=== PATIENT | female | born 1970 | race Caucasian/White ===

== ENCOUNTER 2021-02-03 11:17 | Emergency (ER) | payer OTHER ==
[2021-02-03 13:28] LABS: BASOPHIL 0.7 % (0-2); EOSINOPHIL 0.6 % (0-5); HCT 43.7 % (37.0-47.0); HGB 14.6 g/dl (12.5-16.0); LYMPHOCYTE 7.3 % (15-48); MCH 29.7 pg (25.0-31.0); MCHC 33.4 g/dL (32.0-36.0); MONOCYTE 7.7 % (0-12); MPV 9.8 fL (6.0-9.5); NEUTROPHIL 83.4 % (41-80); NRBC 0; PLT 221 K/uL (150-400); RBC 4.91 M/uL (4.20-5.40); RDW 13.5 % (11.5-14.0); WBC 9.4 K/uL (4.0-10.5)
[2021-02-03 13:39] LABS: BUN/CREAT RATIO (CALC) 14.8 RATIO; CREATININE 0.61 mg/dL (0.51-0.95); POTASSIUM 4.3 mmol/L (3.5-5.1)
[2021-02-03] MEDS ORDERED: AMOXICILLIN500 MG PO (15:50)
[2021-02-03] MEDS ORDERED: FLONASE ALLER15.8 ML (15:50)
== END 2021-02-03 16:00 | disposition home or self-care (01) ==
LOC: FER 11:17
PROVIDERS: Nurse Practitioner Family
DX: G43.909 Migraine, unspecified, not intractable, without status migrainosus (principal); J01.90 Acute sinusitis, unspecified; Z98.890 Other specified postprocedural states
CPT/HCPCS: 36415; 80048; 85025; J1100; J1885; J2405; J2765; J7030